=== PATIENT | male | born 1950 | race Caucasian/White ===

== ENCOUNTER → 2016-10-25 | Outpatient (CLI) | payer OTHER ==
[2016-10-25 12:58] LABS: BASO % 0.2 %; BASO ABS # 0.01 K/uL (0-0.2); COMPLETE YES; EOS % 2.9 %; IG% 0.2 %; LYMPH % 42.2 %; LYMPH ABS # 2.45 K/uL (1.2-3.4); MEAN CELL VOLUME 92.4 fL (80-100); MEAN CORPUSCULAR HEMOGLOBIN 30.7 pg (25-34); MEAN CORPUSCULAR HGB CONC 33.2 g/dl (32-36); MONO % 6.4 %; NEUT % 48.1 %; PLATELET COUNT 203 K/uL (130-400); RED BLOOD COUNT 4.76 M/uL (4.7-6.1); WHITE BLOOD COUNT 5.81 K/uL (4.8-10.8)
[2016-10-25 15:26] LABS: ALKALINE PHOSPHATASE 93 U/L (45-117); ALT/SGPT 26 U/L (12-78); AST/SGOT 18 U/L (15-37); BLOOD UREA NITROGEN 16 mg/dl (7-18); BUN/CREATININE RATIO 18.4 (10-20); CALCIUM 8.9 mg/dl (8.5-10.1); CARBON DIOXIDE 30 mmol/L (21-32); CHLORIDE 107 mmol/L (98-107); CREATININE 0.87 mg/dl (0.60-1.40); GLUCOSE 92 mg/dl (70-99); HDL CHOLESTEROL 75 mg/dl; POTASSIUM 4.2 mmol/L (3.5-5.1); SODIUM 143 mmol/L (136-145)
[2016-10-25 15:38] LABS: ALB/GLOB RATIO 1.4 (0.9-2); CHOLESTEROL 163 mg/dl (0-200); CHOLESTEROL/HDL RATIO 2.2; LDL CHOLESTEROL CALCULATED 73 mg/dl; TRIGLYCERIDES 77 mg/dl (0-150); VERY LOW DENSITY LIPOPROT CALC 15 mg/dl
== END | disposition home or self-care (01) ==
LOC: C.LABPBG 07:44
PROVIDERS: ATTEND Neuromusculoskeletal Medicine & OMM
DX: Z00.00 Encounter for general adult medical examination without abnormal findings (principal); R53.83 Other fatigue; Z12.5 Encounter for screening for malignant neoplasm of prostate; N40.0 Benign prostatic hyperplasia without lower urinary tract symptoms

== ENCOUNTER → 2016-12-10 | Outpatient (CLI) | payer OTHER | END | disposition home or self-care (01) | LOC: C.PATHSPEC 17:36 | PROVIDERS: ATTEND Dentist General Practice | DX: D21.0 Benign neoplasm of connective and other soft tissue of head, face and neck (principal) ==

== ENCOUNTER → 2017-02-11 | Outpatient (CLI) | payer OTHER | END | disposition home or self-care (01) | LOC: C.LABPBG 08:17 | PROVIDERS: ATTEND Neuromusculoskeletal Medicine & OMM | DX: Z12.5 Encounter for screening for malignant neoplasm of prostate (principal); R97.20 Elevated prostate specific antigen [PSA] ==

== ENCOUNTER → 2017-06-29 | Outpatient (CLI) | payer OTHER ==
[2017-06-29 12:28] LABS: BLOOD UREA NITROGEN 21 mg/dl (7-18); CREATININE 0.89 mg/dl (0.60-1.40)
== END | disposition home or self-care (01) ==
LOC: C.LABPBG 10:24
PROVIDERS: ATTEND Urology
DX: R97.20 Elevated prostate specific antigen [PSA] (principal); N40.1 Benign prostatic hyperplasia with lower urinary tract symptoms

== ENCOUNTER → 2017-07-04 | Outpatient (CLI) | payer OTHER ==
[~2017-07-04] MED LIST: GADAVIST IV PRN
--- NOTE | 2017-07-04 15:28 | DIAGNOSTIC IMAGING REPORT ---
PROSTATE MRI COMBO CLINICAL HISTORY: 66-year-old male with elevated PSA of 6.540 on April 14, 2017. Benign prostatic hyperplasia with urinary obstruction. TECHNIQUE: Multisequence, multiplanar MR imaging of the prostate was performed before and after the intravenous administration of 7 cc of Gadavist Additional postprocessing was performed on a separate [employer] workstation by the radiologist for 3-D volumetric segmentation of the prostate and contouring of region(s) of interest (BLU) for targeting. A fleets edema was administered. COMPARISON: None. FINDINGS: Prostate: The prostate measures 5.4 x 4.1 x 5.7 cm cm (DynaCAD prostate boundary segmentation volume 64.68 mL). Moderate changes of benign prostatic hyperplasia. Precontrast T1 weighted imaging demonstrates no evidence of intrinsic T1 hyperintensity to suggest hemorrhage. There is asymmetric decreased size and T2 signal intensity within the left seminal vesicle.. Suspicious lesion(s) described below: Lesion (DynaCAD BLU) : The diffusion weighted sequences and ADC map are significantly compromised by artifact related to gas within the rectum. The T2-weighted sequences are diagnostic. Note is made of a subtle 1.1 x 0.9 x 0.6 cm focus of restricted diffusion with possible corresponding T2 hypointensity within the left anterior aspect of the transitional zone within the mid gland. Bladder: Normal. Bowel: Visualized portion of the rectum normal. Peritoneum: No free fluid in the pelvis. Lymph nodes: No lymphadenopathy in the visualized portion of the pelvis. Vasculature: Iliac vessels patent. Abdominal wall: Normal. Osseous structures: Normal bone marrow signal intensity. IMPRESSION: 1. Diffusion-weighted sequence and ADC map significantly compromised by bowel gas within the rectum. No overtly suspicious lesions within the prostate gland. Subtle 1.1 x 0.9 x 0.6 cm focus of restricted diffusion with possible corresponding T2 hypointensity within left anterior aspect of the transitional zone within the mid gland. This is indeterminate but suboptimally assessed on this exam and considered a PI-RADS 3 lesion: intermediate (the presence of a clinically significant cancer is equivocal). The patient could return for repeat diffusion-weighted sequence/ADC map at no additional charge given rectal gas on this exam. Alternatively, the patient could return for a follow-up MRI of the prostate in 6 months. 2. Moderate benign prostatic hyperplasia. Electronically signed by: Dillon Anderson M.D. 07/04/2017 3:27 PM Dictated Date/Time: 07/04/2017 1:00 PM
== END | disposition home or self-care (01) ==
LOC: C.MRIBC 10:57
PROVIDERS: ATTEND Urology
DX: R93.5 Abnormal findings on diagnostic imaging of other abdominal regions, including retroperitoneum (principal); N40.1 Benign prostatic hyperplasia with lower urinary tract symptoms; R97.20 Elevated prostate specific antigen [PSA]